=== PATIENT | female | born 1945 | race Caucasian/White ===

== ENCOUNTER 2021-04-25 13:37 | Outpatient (CLI) | payer MEDICARE, MEDICAID, SELFPAY ==
--- NOTE | 2021-04-25 14:20 | MM_ITS ---
WS: [id number] BILATERAL DIGITAL SCREENING MAMMOGRAPHY WITH CAD CLINICAL INFORMATION: SCREEN HISTORY: Screening mammogram. No current complaints. COMPARISON: TECHNIQUE: Bilateral CC and MLO views. FINDINGS: Scattered fibroglandular densities bilaterally. No suspicious focal mass, asymmetry, calcifications, or architectural distortion. No evidence of malignancy. Vascular calcification. Lucent centered calci fication left breast. MM/[place] [id number] IMPRESSION: BI-RADS: 2-Benign FOLLOW UP: 1 Year Follow-up Recommend return to annual screening mammography.
--- NOTE | 2021-04-25 14:42 | XR_ITS ---
WS: [id number] DEXA (DUAL ENERGY X-RAY ABSORPTIOMETRY) Bone mineral density was performed using a Oc[employer] machine. HISTORY: POST MENOPAUSAL COMPARISON: 08/03/2015 Lumbar spine BMD (L1-L4): 1.306 g/cm2 T score: 1.1 Z score: 2.2 Total hip BMD: Left: 0.999 g/cm2. T score: -0.1 Z score: 1.2 Right: 0.989 g/cm2. T score: -0.1 Z score: 1.2 10 year probability of a major osteoporotic fracture is 11.5%. Compared to the prior study from 08/03/2015. Lumbar spine bone mineral density has increased by 4.9%. Bilateral hips bone mineral density has increased by 0.9%. XR/XR DEXA axial skeleton* [id number] IMPRESSION: NORMAL BONE MINERAL DENSITY based upon the WHO classification for females. Ther e has been a significant increase in bone mineral density within the lumbar spi ne since the prior study.
== END 2021-04-25 13:38 | disposition home or self-care (01) ==
PROVIDERS: PCP Nurse Practitioner Family; Visit Provider Nurse Practitioner Family
DX: Z12.31 Encounter for screening mammogram for malignant neoplasm of breast (principal); Z78.0 Asymptomatic menopausal state
CPT/HCPCS: 77067; 77080

== ENCOUNTER 2021-06-01 07:57 | Emergency (ER) | payer MEDICARE, MEDICAID, SELFPAY ==
--- NOTE | 2021-06-01 07:58 | ECG_ITS ---
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 Measurements Intervals [place] Rate: 77 P: 66 AK: 165 QRS: 24 QRSD: 92 T: 48 QT: 371 QTc: 422 Interpretive Statements SINUS RHYTHM WITH SINUS ARRHYTHMIA POSSIBLE RIGHT VENTRICULAR CONDUCTION DELAY [RSR (QR) IN V1/V2] MINIMAL ST DEPRESSION [0.025+ mV ST DEPRESSION] No previous ECG available for comparison Electronically Signed On 06-01-2021 17:39:36 DRYWALL TAPER by Hossein Osuna M.D. [id number]
--- NOTE | 2021-06-01 07:59 | W.ED.ABDPA2 ---
HPI - Abdominal Pain General: Chief Complaint: Abdominal Pain Stated Complaint: ABD PAIN Time Seen by Provider: 06/01/21 07:58 Source: patient Mode of arrival: ambulatory History of Present Illness: 75-year-old female presents to the emergency room with complaint of generalized abdominal discomfort. She states her whole belly hurts she feels bloated ache she has had some loose stools. This began about 4 to 5 days ago she denies any hematochezia or melena. She not had any vomiting. She generally has not felt well. She denies any upper respiratory symptoms no dysuria urgency or frequency. She states she is never had a colonoscopy she has no known history of diverticulitis her only previous abdominal surgery was a cholecystectomy several years ago. Not really noticed anything that exacerbates or relieves it. MD elicited complaint: abdominal pain Pertinent past history: none Onset (ago): minute(s) Location: R flank Severity: mild Quality: aching Radiation: RLQ Exacerbating factors: nothing Relieving factors: nothing Associated Symptoms: Reports bloating, change in stool character, GI cramping, diarrhea, nausea and poor appetite; Denies anorexia, belching, change in bowel habits, chills, coffee ground emesis, constipation, dyspepsia, dysuria, excessive flatus, fever(s), heartburn, hematochezia, hematuria, hematemesis, fecal incontinence, loose stools, melena, syncope and vomiting Review of Systems Const: Denies: fever(s) or chills ENMT: Denies: throat pain, ear or mastoid pain, nasal discharge or nasal congestion Card: Denies: syncope Resp: Denies: dyspnea, productive cough or non-productive cough GI: Reports: nausea, diarrhea, bloating, GI cramping and change in stool character; Denies: vomiting, hematemesis, coffee ground emesis, heartburn, constipation, belching, excessive flatus, fecal incontinence, change in bowel habits, hematochezia or melena : Denies: dysuria or hematuria Skin/Breast: Denies: rash or pruritus PFSH ED PFSH: Medical History Hypertension Obesity Surgical History Status post cholecystectomy Social History Smoking and tobacco status: never smoked Physical Exam Const: GENERAL APPEARANCE: cooperative and comfortable ORIENTATION/CONSCIOUSNESS: Yes awake, Yes oriented to person, Yes oriented to place and Yes oriented to time HENMT: COMMON NORMALS: normocephalic, atraumatic and hearing grossly normal bilaterally HEAD & SCALP: normocephalic and atraumatic Neck/C-Spine: COMMON NORMALS: no JVD Resp: COMMON NORMALS: normal respiratory effort, No retractions, No use of accessory muscles and clear to auscultation bilaterally AUSCULTATION: clear to auscultation bilaterally Cardio: COMMON NORMALS: no JVD, regular rate, regular rhythm and No murmurs present (Cardio) RATE: regular rate RHYTHM: regular rhythm GI: COMMON NORMALS: Soft to palpation and No hepatosplenomegaly present AUSCULTATION: Yes normoactive bowel sounds PALPATION: Yes Soft to palpation, No Tenderness to palpation present (GI), No Guarding due to palpation present (GI) and Yes No hepatosplenomegaly present Extremity: COMMON NORMALS: normal to inspection, capillary refill normal, no clubbing, cyanosis or edema, no calf tenderness and no pedal edema Neuro: SENSORIUM/ORIENTATION: Yes oriented to person, Yes oriented to place and Yes oriented to time Skin: COMMON NORMALS: no rashes or lesions noted GENERAL SKIN EXAM: no rashes or lesions noted Course Vital Signs: Vital signs: Vital Signs Temperature 98.7 F 06/01/21 08:05 Pulse Rate 88 06/01/21 11:19 Respiratory Rate 16 06/01/21 11:19 Blood Pressure 106/74 06/01/21 11:19 Pulse Oximetry 96 06/01/21 11:19 MDM - Abdominal Pain Medical Decision Making Labs and imaging reviewed. Patient is a mild pneumonitis does not appear to be COVID by her symptoms or lab work. We will start her on Levaquin. She does have an incidental finding of cervix which will need outpatient ALT follow-up ultrasound on. She has any worsening change return to emergency room. Lab Data : 06/01/21 08:07 06/01/21 08:07 Labs/Radiology: Radiology Impressions Abdomen/Pelvis CT 06/01/21 09:36 IMPRESSION: 1. Sigmoid diverticulosis. No evidence of acute diverticulitis. 2. Heterogeneous uterine enhancement with diffuse masslike thickening in the cervix. This is indeterminant and recommend further evaluation with ultrasound to exclude neoplasm. Endometrial thickening measuring 7 mm. 3. No free fluid in the abdomen or pelvis. 4. Normal caliber abdominal aorta. 5. Slight hazy patchy infiltrates in the lung bases. Recommend correlation for pneumonitis. 6. No other acute findings. Notified Suman Atkinson DO at 06/01/2021 10:20 AM. Chest X-Ray 06/01/21 10:09 IMPRESSION: No acute chest abnormality. Laboratory Results WBC 4.5 10^3/uL (4.0-10.0) 06/01/21 08:07 RBC 4.91 10^6/uL (4.1-5.3) 06/01/21 08:07 Hgb 14.0 g/dL (11.5-15.3) 06/01/21 08:07 Hct 43.5 % (37.0-47.0) 06/01/21 08:07 MCV 88.6 fl (81-99) 06/01/21 08:07 MCH 28.5 pg (28.0-34.0) 06/01/21 08:07 MCHC 32.2 g/dL (30.0-36.0) 06/01/21 08:07 RDW 13.0 % (12.1-15.1) 06/01/21 08:07 Plt Count 189 10^3/cmm (130-400) 06/01/21 08:07 MPV 11.5 fL (7.4-10.4) H 06/01/21 08:07 Neut % (Auto) 62.6 % 06/01/21 08:07 Lymph % (Auto) 22.9 % 06/01/21 08:07 [place] % (Auto) 13.0 % 06/01/21 08:07 Eos % (Auto) 0.4 % 06/01/21 08:07 Baso % (Auto) 0.4 % 06/01/21 08:07 Neut # (Auto) 2.84 10^3/uL (1.8-7.7) 06/01/21 08:07 Lymph # (Auto) 1.0 10^3/uL (0.8-4.8) 06/01/21 08:07 [place] # (Auto) 0.6 10^3/uL (0.2-0.9) 06/01/21 08:07 Eos # (Auto) 0.0 10^3/uL (0.0-0.8) 06/01/21 08:07 Baso # (Auto) 0.0 10^3/uL (0.0-0.1) 06/01/21 08:07 Nucleated RBC % (auto) 0 % 06/01/21 08:07 Nucleated RBCs # 0.0 /100WBC 06/01/21 08:07 Sodium 139 mmol/L (136-145) 06/01/21 08:07 Potassium 4.0 mmol/L (3.5-5.1) 06/01/21 08:07 Chloride 100 mmol/L (98-107) 06/01/21 08:07 Carbon Dioxide 22 mmol/L (22-29) 06/01/21 08:07 Anion Gap 21.0 (5-19) H 06/01/21 08:07 BUN 25 mg/dL (8-23) H 06/01/21 08:07 Creatinine 0.9 mg/dL (0.5-0.9) 06/01/21 08:07 GFR Calculation Not Reportable 06/01/21 08:07 Glucose 105 mg/dL (65-115) 06/01/21 08:07 Calculated Osmolality 293 mOsm/kg (285-295) 06/01/21 08:07 Calcium 9.2 mg/dL (8.5-10.5) 06/01/21 08:07 Total Bilirubin 0.5 mg/dL (0.15-1.2) 06/01/21 08:07 AST 40 U/L (0-32) H 06/01/21 08:07 ALT 31 U/L (0-33) 06/01/21 08:07 Alkaline Phosphatase 75 IU/L (35-105) 06/01/21 08:07 Total Protein 6.6 g/dL (6.6-8.7) 06/01/21 08:07 Albumin 4.2 g/dL (3.5-5.2) 06/01/21 08:07 Globulin 2.4 g/dL (1.3-4.6) 06/01/21 08:07 Lipase 39 U/L (13-60) 06/01/21 08:07 Urine Color Yellow (Yellow) 06/01/21 09:10 Urine Appearance Clear (CLEAR) 06/01/21 09:10 Urine pH 5 (5-7) 06/01/21 09:10 Ur Specific [place] 1.015 (1.005-1.030) 06/01/21 09:10 Urine Protein Neg (Negative) 06/01/21 09:10 Urine Glucose (UA) Norm (Normal) 06/01/21 09:10 Urine Ketones Negative (Negative) 06/01/21 09:10 Urine Blood Neg (Negative) 06/01/21 09:10 Urine Nitrate Negative (Negative) 06/01/21 09:10 Urine Bilirubin Neg (Negative) 06/01/21 09:10 Urine Urobilinogen Norm mg/dL (Negative) 06/01/21 09:10 Ur Leukocyte Esterase Negative (Negative) 06/01/21 09:10 Discharge Plan Discharge Patient Disposition: Home Clinical Impression: Pneumonia Condition: Stable Prescriptions: New levofloxacin 750 mg tablet 750 mg PO DAILY 7 Days Qty: 7 0RF Discharge Orders: Discharge ED (Routine); Ordered 06/01/21 Ordered By: Suman Atkinson Referrals: Lourdes Fleming FNP [Primary Care Provider] - Discharge Diet: Usual diet Discharge Activity: Increase activity as tolerated Patient Instructions: Opioid Safety Activity Restrictions/Additional Instructions: Follow-up with your primary care doctor or return to the ER if you have worsening symptoms Coding Level of Care Code ED Copy Camera Operator for Jose Eduardo Fwd Exam Comprehensive
[2021-06-01 08:05] VITALS: BP 120/68; PULSE 89; RESP 23; TEMP 37.1; O2SAT 98
[2021-06-01 08:12] LABS: Basophils % 0.4 %; Eosinophils % 0.4 %; Hematocrit 43.5 % (37.0-47.0); Lymphocytes % 22.9 %; Mean Corpuscular HGB Conc 32.2 g/dL (30.0-36.0); Mean Corpuscular Hemoglobin 28.5 pg (28.0-34.0); Mean Corpuscular Volume 88.6 fl (81-99); Mean Platelet Volume 11.5 fL (7.4-10.4); Monocytes # 0.6 10^3/uL (0.2-0.9); Neutrophils # 2.84 10^3/uL (1.8-7.7); Neutrophils % 62.6 %; Nucleated Red Blood Cells % 0 %; Platelet Count 189 10^3/cmm (130-400); Red Blood Count 4.91 10^6/uL (4.1-5.3); White Blood Count 4.5 10^3/uL (4.0-10.0)
[2021-06-01 08:32] LABS: Alanine Aminotransferase 31 U/L (0-33); Albumin Level 4.2 g/dL (3.5-5.2); Alkaline Phosphatase 75 IU/L (35-105); Aspartate Amino Transferase 40 U/L (0-32); Blood Urea Nitrogen 25 mg/dL (8-23); Calcium 9.2 mg/dL (8.5-10.5); Carbon Dioxide 22 mmol/L (22-29); Chloride 100 mmol/L (98-107); Globulin 2.4 g/dL (1.3-4.6); Glucose 105 mg/dL (65-115); Lipase 39 U/L (13-60); Osmolality Calculated 293 mOsm/kg (285-295); Sodium 139 mmol/L (136-145); Total Bilirubin 0.5 mg/dL (0.15-1.2); Total Protein 6.6 g/dL (6.6-8.7)
[2021-06-01 08:49] VITALS: BP 115/65; PULSE 77; RESP 12; O2SAT 96
[2021-06-01 09:21] LABS: Add Urine Microscopic? NO; Charge for UA Resulting for Rev
[2021-06-01 09:28] LABS: Bilirubin Urine Neg (Negative); Blood Urine Neg (Negative); Glucose Urine UA Norm (Normal); Ketones Urine Negative (Negative); Leukocyte Esterase Urine Negative (Negative); Nitrate Urine Negative (Negative); Protein Urine Neg (Negative); Specific Gravity, Urine 1.015 (1.005-1.030); Urine Appearance Clear (CLEAR); Urine Color Yellow (Yellow); Urobilinogen Urine Norm (Negative); pH Urine 5 (5-7)
--- NOTE | 2021-06-01 09:36 | CT_ITS ---
WS: [id number] CT ABDOMEN PELVIS TECHNIQUE: Contrast-enhanced CT of the abdomen and pelvis with coronal and sagittal reformatted image s. CLINICAL INFORMATION: abd pain COMPARISON: None. DLP: 1590.[address] scans at [facility] use at least one of these dose optimization techniques: automated e xposure control; mA and/or kV adjustment per patient size (includes targeted exams where dose is matc hed to clinical indication); or iterative reconstruction. FINDINGS: Diffuse fatty infiltration of the liver. Normal portal vein and splenic vein. Cholecystectomy clips. Mild splenomegaly. Slight hazy infiltrates in the RIGHT greater than LEFT lower lobe. Recommend corre lation for pneumonitis. Fatty atrophy of the pancreas. Normal GE junction. Adrenal glands are normal. Normal renal parenchyma l enhancement. No hydronephrosis. Small RIGHT renal cyst. Normal caliber abdominal aorta. Mild aortic calcification. Heterogeneous uterine enhancement with end ometrial thickening and heterogeneous thickening at the cervix. Recommend further evaluation with ult rasound. Sigmoid diverticulosis. No evidence of acute diverticulitis. Normal bladder. No evidence of small or large bowel obstruction. Small fat-containing umbilical hernia.Disc space narrowing worse L4-L5 and L 5-S1. Celiac and SMA are patent. CT/CT abdomen pelvis w con* [id number] IMPRESSION: 1. Sigmoid diverticulosis. No evidence of acute diverticulitis. 2. Heterogeneous uterine enhancement with diffuse masslike thickening in the c ervix. This is indeterminant and recommend further evaluation with ultrasound t o exclude neoplasm. Endometrial thickening measuring 7 mm. 3. No free fluid in the abdomen or pelvis. 4. Normal caliber abdominal aorta. 5. Slight hazy patchy infiltrates in the lung bases. Recommend correlation for pneumonitis. 6. No other acute findings. Notified Suman Atkinson DO at 06/01/2021 10:20 AM.
[2021-06-01] MEDS: iohexol 300 mg/mL 100 mL Btl IV (09:58)
--- NOTE | 2021-06-01 10:09 | XR_ITS ---
WS: [id number] XR chest 1V portable [id number] REASON FOR EXAM: dyspnea/cough FINDINGS: Heart and mediastinum are within normal limits for age. Calcified granulomatous disease in both hemithoraces. No acute pulmonary parenchymal or pleural abnormality is identified. Mild to moderate changes of degenerative spondylosis in the mid and lower thoracic spine. XR/XR chest 1V portable [id number] IMPRESSION: No acute chest abnormality.
[2021-06-01 11:05] VITALS: BP 110/70; PULSE 65; RESP 12; O2SAT 98
[2021-06-01 11:19] VITALS: BP 106/74; PULSE 88; RESP 16; O2SAT 96
--- NOTE | 2021-06-05 12:48 | DCPLANNER ---
emergency department manager had message to schedule an outpatient ultrasound for patient. emergency department manager faxed signed order to centralized scheduling, who will call patient with appointment information.
--- NOTE | 2021-06-23 10:36 | DCPLANNER ---
Addendum entered by Anette Garcia 08/03/21 08:30: Patient had an out patient test scheduled for 07.11.21 - patient did attend appointment. Original Note: Patient has an appointment scheduled for an ultrasound at 12:45 on Friday, July 11, 2021. Centralized scheduling will call patient with appointment information.
== END 2021-06-01 11:42 | disposition home or self-care (01) ==
PROVIDERS: Emergency Provider Family Medicine; PCP Nurse Practitioner Family
DX: J18.9 Pneumonia, unspecified organism (principal); I10 Essential (primary) hypertension
CPT/HCPCS: 71045; 74177; 80053; 81003; 83690; 85025; 93005; 99283; Q9967

== ENCOUNTER 2021-06-02 08:29 | Emergency (ER) | payer MEDICARE, MEDICAID, SELFPAY ==
[2021-06-02 08:31] VITALS: BP 114/72; PULSE 85; RESP 18; TEMP 37.4; O2SAT 99; BMI 34.3
--- NOTE | 2021-06-02 08:51 | XRR_ITS ---
PROCEDURE INFORMATION: Exam: XR Chest Exam date and time: 06/02/2021 8:51 AM Age: 75 years old Clinical indication: Patient HX: Dyspnea/cough, weakness TECHNIQUE: Imaging protocol: XR of the chest. Views: 1 view. Total images: 1 COMPARISON: CR XR chest 1V portable [id number] 06/01/2021 10:15 AM FINDINGS: Lungs: Unremarkable. No consolidation. Pleural spaces: Unremarkable. No pleural effusion. No pneumothorax. Heart/Mediastinum: Unremarkable. No cardiomegaly. Bones/joints: Unremarkable. Other findings: X-ray is slightly rotated. XR/XR chest 1V portable [id number] IMPRESSION: No acute findings.
--- NOTE | 2021-06-02 08:58 | W.ED.ABDPA2 ---
HPI - Abdominal Pain General: Chief Complaint: Abdominal Pain Stated Complaint: ABD PAIN Time Seen by Provider: 06/02/21 08:33 Source: patient Mode of arrival: EMS Limitations: no limitations History of Present Illness: 75-year-old female returns emergency room today complaining of just feeling weak. She was seen yesterday evaluation included a CT of the abdomen chest x-ray is pneumonia noticed on the imaging and she was started on Levaquin. She taken 1 tablet since then. She denies any chest pain she is not really been significantly short of breath she has not had any vomiting or diarrhea she denies any dysuria urgency or frequency states her stomach feels upset. No diarrhea. No specific complaint other than just her stomach feels uneasy and she feels weak. MD elicited complaint: abdominal pain Pertinent past history: none Location: None Severity: mild Quality: other ( Unsettled ) Radiation: none Exacerbating factors: nothing Relieving factors: nothing Associated Symptoms: Reports other (Weakness); Denies anorexia, belching, bloating, change in bowel habits, change in stool character, chills, coffee ground emesis, constipation, GI cramping, diarrhea, dyspepsia, dysuria, excessive flatus, fever(s), heartburn, hematochezia, hematuria, fecal incontinence, loose stools, melena, nausea, poor appetite, syncope and vomiting Review of Systems Const: Denies: fever(s) or chills ENMT: Denies: throat pain, ear or mastoid pain, nasal discharge or nasal congestion Card: Denies: syncope Resp: Denies: dyspnea, productive cough or non-productive cough GI: Reports: other (Weakness); Denies: nausea, vomiting, coffee ground emesis, heartburn, diarrhea, constipation, bloating, GI cramping, belching, excessive flatus, fecal incontinence, change in bowel habits, change in stool character, hematochezia or melena : Denies: dysuria or hematuria Skin/Breast: Denies: rash or pruritus [facility] ED PFSH: Medical History Hypertension Obesity Surgical History Status post cholecystectomy Social History (Reviewed 06/02/21 @ 09:00 by TOMI Hernandez Smoking and tobacco status: never smoked Physical Exam Const: COMMON NORMALS: no acute distress GENERAL APPEARANCE: cooperative and comfortable ORIENTATION/CONSCIOUSNESS: Yes awake, Yes oriented to person, Yes oriented to place and Yes oriented to time HENMT: COMMON NORMALS: normocephalic, atraumatic and hearing grossly normal bilaterally HEAD & SCALP: normocephalic and atraumatic Neck/C-Spine: COMMON NORMALS: no JVD Resp: COMMON NORMALS: normal respiratory effort, No retractions, No use of accessory muscles and clear to auscultation bilaterally AUSCULTATION: clear to auscultation bilaterally Cardio: COMMON NORMALS: no JVD, regular rate, regular rhythm and No murmurs present (Cardio) RATE: regular rate RHYTHM: regular rhythm GI: COMMON NORMALS: Soft to palpation and No hepatosplenomegaly present AUSCULTATION: Yes normoactive bowel sounds PALPATION: Yes Soft to palpation, No Tenderness to palpation present (GI), No Guarding due to palpation present (GI) and Yes No hepatosplenomegaly present Extremity: COMMON NORMALS: normal to inspection, capillary refill normal, no clubbing, cyanosis or edema, no calf tenderness and no pedal edema Neuro: SENSORIUM/ORIENTATION: Yes oriented to person, Yes oriented to place and Yes oriented to time Skin: COMMON NORMALS: no rashes or lesions noted GENERAL SKIN EXAM: no rashes or lesions noted Course Vital Signs: Vital signs: Vital Signs Temperature 99.4 F 06/02/21 08:31 Pulse Rate 85 06/02/21 08:31 Respiratory Rate 18 06/02/21 08:31 Blood Pressure 114/72 06/02/21 08:31 Pulse Oximetry 99 06/02/21 08:31 MDM - Abdominal Pain Medical Decision Making Patient generally weak having loose stools. She now has some lymphocytopenia that was not present yesterday rapid Covid antigen is positive discussed results with patient discharge home supportive cares monitor oxygen with home possible pulse oximetry. Medical Records I reviewed the patient's medical records. Lab Data I reviewed the patient's lab results. : 06/02/21 08:41 06/02/21 08:41 Labs/Radiology: Radiology Impressions Chest X-Ray 06/02/21 08:51 IMPRESSION: No acute findings. Laboratory Results WBC 4.5 10^3/uL (4.0-10.0) 06/02/21 08:41 RBC 4.49 10^6/uL (4.1-5.3) 06/02/21 08:41 Hgb 12.9 g/dL (11.5-15.3) 06/02/21 08:41 Hct 39.7 % (37.0-47.0) 06/02/21 08:41 MCV 88.4 fl (81-99) 06/02/21 08:41 MCH 28.7 pg (28.0-34.0) 06/02/21 08:41 MCHC 32.5 g/dL (30.0-36.0) 06/02/21 08:41 RDW 13.0 % (12.1-15.1) 06/02/21 08:41 Plt Count 198 10^3/cmm (130-400) 06/02/21 08:41 MPV 11.7 fL (7.4-10.4) H 06/02/21 08:41 Neut % (Auto) 74.0 % 06/02/21 08:41 Lymph % (Auto) 14.6 % 06/02/21 08:41 [place] % (Auto) 9.4 % 06/02/21 08:41 Eos % (Auto) 0.7 % 06/02/21 08:41 Baso % (Auto) 0.4 % 06/02/21 08:41 Neut # (Auto) 3.29 10^3/uL (1.8-7.7) 06/02/21 08:41 Lymph # (Auto) 0.7 10^3/uL (0.8-4.8) L 06/02/21 08:41 [place] # (Auto) 0.4 10^3/uL (0.2-0.9) 06/02/21 08:41 Eos # (Auto) 0.0 10^3/uL (0.0-0.8) 06/02/21 08:41 Baso # (Auto) 0.0 10^3/uL (0.0-0.1) 06/02/21 08:41 Nucleated RBC % (auto) 0 % 06/02/21 08:41 Nucleated RBCs # 0.0 /100WBC 06/02/21 08:41 Sodium 138 mmol/L (136-145) 06/02/21 08:41 Potassium 3.8 mmol/L (3.5-5.1) 06/02/21 08:41 Chloride 100 mmol/L (98-107) 06/02/21 08:41 Carbon Dioxide 22 mmol/L (22-29) 06/02/21 08:41 Anion Gap 19.8 (5-19) H 06/02/21 08:41 BUN 16 mg/dL (8-23) 06/02/21 08:41 Creatinine 1.0 mg/dL (0.5-0.9) H 06/02/21 08:41 GFR Calculation Not Reportable 06/02/21 08:41 Glucose 109 mg/dL (65-115) 06/02/21 08:41 Calculated Osmolality 288 mOsm/kg (285-295) 06/02/21 08:41 Calcium 8.9 mg/dL (8.5-10.5) 06/02/21 08:41 Total Bilirubin 0.5 mg/dL (0.15-1.2) 06/02/21 08:41 AST 36 U/L (0-32) H 06/02/21 08:41 ALT 27 U/L (0-33) 06/02/21 08:41 Alkaline Phosphatase 66 IU/L (35-105) 06/02/21 08:41 Total Protein 6.6 g/dL (6.6-8.7) 06/02/21 08:41 Albumin 3.9 g/dL (3.5-5.2) 06/02/21 08:41 Globulin 2.7 g/dL (1.3-4.6) 06/02/21 08:41 Lipase 31 U/L (13-60) 06/02/21 08:41 SARS-CoV-2 Ag (Rapid) Positive (Negative) H 06/02/21 09:53 Discharge Plan Discharge Patient Disposition: Home Clinical Impression: COVID-19 Condition: Stable Prescriptions: Discontinued levofloxacin 750 mg tablet 750 mg PO DAILY 7 Days Qty: 7 0RF Discharge Orders: Discharge ED (Routine); Ordered 06/02/21 Ordered By: Suman Atkinson Referrals: Lourdes Fleming FNP [Primary Care Provider] - Discharge Diet: Usual diet Discharge Activity: Increase activity as tolerated Patient Instructions: COVID-19 (Coronavirus Disease 2019) (ED), Opioid Safety Activity Restrictions/Additional Instructions: Follow-up with your primary care doctor by telehealth visit or phone call in 2 days return emergency room if further problems. Coding Level of Care Code ED Historic Preservationist for Jose Eduardo Fwrachell Exam Comprehensive
[2021-06-02 09:28] LABS: Basophils % 0.4 %; Eosinophils % 0.7 %; Hematocrit 39.7 % (37.0-47.0); Hemoglobin 12.9 g/dL (11.5-15.3); Lymphocytes # 0.7 10^3/uL (0.8-4.8); Lymphocytes % 14.6 %; Mean Corpuscular HGB Conc 32.5 g/dL (30.0-36.0); Mean Corpuscular Hemoglobin 28.7 pg (28.0-34.0); Mean Corpuscular Volume 88.4 fl (81-99); Mean Platelet Volume 11.7 fL (7.4-10.4); Monocytes # 0.4 10^3/uL (0.2-0.9); Monocytes % 9.4 %; Neutrophils # 3.29 10^3/uL (1.8-7.7); Nucleated Red Blood Cells % 0 %; Platelet Count 198 10^3/cmm (130-400); Red Blood Count 4.49 10^6/uL (4.1-5.3); White Blood Count 4.5 10^3/uL (4.0-10.0)
[2021-06-02 09:37] LABS: Alanine Aminotransferase 27 U/L (0-33); Albumin Level 3.9 g/dL (3.5-5.2); Alkaline Phosphatase 66 IU/L (35-105); Anion Gap 19.8 (5-19); Aspartate Amino Transferase 36 U/L (0-32); Blood Urea Nitrogen 16 mg/dL (8-23); Calcium 8.9 mg/dL (8.5-10.5); Carbon Dioxide 22 mmol/L (22-29); Chloride 100 mmol/L (98-107); Globulin 2.7 g/dL (1.3-4.6); Glucose 109 mg/dL (65-115); Lipase 31 U/L (13-60); Osmolality Calculated 288 mOsm/kg (285-295); Potassium 3.8 mmol/L (3.5-5.1); Sodium 138 mmol/L (136-145); Total Bilirubin 0.5 mg/dL (0.15-1.2); Total Protein 6.6 g/dL (6.6-8.7)
[2021-06-02 10:31] LABS: SARS Covid-2 Antigen Positive (Negative)
== END 2021-06-02 12:39 | disposition home or self-care (01) ==
PROVIDERS: Emergency Provider Family Medicine; PCP Nurse Practitioner Family
DX: U07.1 COVID-19 (principal); I10 Essential (primary) hypertension
CPT/HCPCS: 71045; 80053; 83690; 85025; 87426; 99283

== ENCOUNTER 2021-07-11 13:03 | Outpatient (CLI) | payer MEDICARE, MEDICAID, SELFPAY ==
--- NOTE | 2021-07-11 13:12 | USR_ITS ---
PROCEDURE INFORMATION: Exam: US Nonobstetric Pelvis; Complete Exam date and time: 07/11/2021 1:12 PM Age: 76 years old Clinical indication: Pelvic pain; Additional info: Cervical mass TECHNIQUE: Imaging protocol: Transabdominal pelvic nonobstetric ultrasound. Complete exam. Real time ultrasound with image documentation. COMPARISON: CT abdomen pelvis w con* [id number] 06/01/2021 9:57 AM FINDINGS: Uterus: Uterus measures 8.3 x 3.3 x 3.5 cm. Endometrium measures 3 mm in thickness. Right ovary/adnexa: Right ovary not visualized. Left ovary not visualized. Left ovary/adnexa: See Right ovary/adnexa finding. Intraperitoneal space: No free fluid in the pelvis. Urinary bladder: Normal. US/US pelvic complete* [id number] IMPRESSION: No acute abnormality. Bilateral ovaries not visualized.
== END 2021-07-11 13:04 | disposition home or self-care (01) ==
LOC: RAD 13:08
PROVIDERS: PCP Nurse Practitioner Family; Visit Provider Family Medicine
DX: R22.1 Localized swelling, mass and lump, neck (principal)
CPT/HCPCS: 76856